=== PATIENT | male | born 1960 | race Caucasian/White ===

== ENCOUNTER → 2016-04-19 | Outpatient (CLI) | payer OTHER ==
--- NOTE | 2016-04-19 21:28 | PN ---
This patient is well-known to me. He is a 55-year-old male patient who was diagnosed having mild obstructive sleep apnea back in 2014 and he was found to have an AHI of 9.8. The patient also has coronary artery disease, hypertension, hyperlipidemia and has a BMI of 43. He was given a trial of CPAP therapy and he was treated with a CPAP pressure of 8 cm of water. Nevertheless, he was unable to be compliant enough to meet insurance guidelines to maintain his CPAP machine. At one point I was considered to do a Pap nap on this patient which he ultimately felt present his PAP nap and the CPAP machine was returned back to his home health care. Over the past 1-1/2 years the patient has not received any treatment and he has gained approximately 17 pounds. Current BMI is up to 45.9. 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 He has become a bit more sleepy than his baseline. Current [place] score is 5. He is snoring and he has had some occasional witnessed apneas. Otherwise, no other health issues ( ) over the past 1-1/2 years. Current medication includes: 1. Metoprolol 25 mg p.o. daily. 2. Lipitor 40 mg p.o. daily. 3. Enalapril 20 mg p.o. daily. 4. Hydrochlorothiazide 25 mg p.o. daily. 5. Vitamin D3. 6. Ecotrin 325 mg p.o. daily. 7. Dulera 200/5, 2 puffs twice a day. 8. Ventolin 2 puffs on a p.r.n. basis. 9. Prilosec 20 mg p.o. daily. 10. Nitroglycerin 0.4 on a p.r.n. basis. 11. Meloxicam 7.5 mg b.i.d. 12. Gabapentin 100 mg 3 times a day. BP is 139/88, pulse 83, respirations 18, temperature 97.9, saturation 96% on room air, weight is 261. Height is 62 inches and a half, [place] score of 5 and BMI is 45.9. GENERAL APPEARANCE: Calm, comfortable, obese. HEENT: Short neck, crowding posterior pharynx. LUNGS: Diminished; otherwise clear. Heart sounds are regular rate and rhythm. Normal S1, S2. No S3, no S4, no murmurs. ABDOMEN: Soft, nontender. No organomegaly. EXTREMITIES: No edema. No cyanosis, or clubbing. IMPRESSION: 1. Obstructive sleep apnea, mild, based on a previous sleep study that was done in 2014 with an apnea score of 9.5. The patient is coming in for evaluation and as the patient has become more symptomatic and he has gained around 17 pounds with current BMI of 45.9. He is also seeking DOT certification. 2. Obesity, with a body mass index of 45.9. 3. Various comorbidities including hypertension, hyperlipidemia, coronary artery disease. PLAN: 1. We will set up this patient for a home sleep study to evaluate this disease and its severity. 2. We will make further recommendations accordingly likely will need another CPAP titration. 3. We will continue to follow and make sure the patient is effectively treated before he obtains his medical clearance for DOT certification.
== END | disposition home or self-care (01) ==
LOC: SLEEP 15:42
PROVIDERS: ATTEND Internal Medicine Critical Care Medicine
DX: G47.33 Obstructive sleep apnea (adult) (pediatric) (principal); E66.9 Obesity, unspecified; Z68.42 Body mass index [BMI] 45.0-49.9, adult; I10 Essential (primary) hypertension; E78.5 Hyperlipidemia, unspecified; I25.10 Atherosclerotic heart disease of native coronary artery without angina pectoris; Z79.899 Other long term (current) drug therapy

== ENCOUNTER → 2017-08-01 | Outpatient (CLI) | payer BC ==
[2017-08-01 16:57] LABS: HCT 41.5 % (39.0-53.0); MCH 25.6 pg (25.0-35.0); MCHC 33.6 g/dL (31.0-37.0); MCV 76.2 fL (80.0-100.0); Platelet Count 183 k/uL (150-450); RBC 5.45 m/uL (4.30-5.90); RDW 14.3 % (11.5-15.5); WBC 6.4 k/uL (3.8-10.6)
[2017-08-01 17:12] LABS: Anion Gap 14 mmol/L; Blood Urea Nitrogen 15 mg/dL (9-20); Carbon Dioxide 27 mmol/L (22-30); Chloride 103 mmol/L (98-107); Potassium 3.8 mmol/L (3.5-5.1); Sodium 144 mmol/L (137-145)
== END | disposition home or self-care (01) ==
LOC: LABPAT 16:29
PROVIDERS: ATTEND Internal Medicine Interventional Cardiology
DX: Z01.812 Encounter for preprocedural laboratory examination (principal); I25.10 Atherosclerotic heart disease of native coronary artery without angina pectoris
CPT/HCPCS: 36415; 80051; 82565; 84520; 85027

== ENCOUNTER 2017-08-07 06:25 | Day surgery (SDC) | payer BC, OTHER ==
[2017-08-02 14:55] VITALS: BMI 44.8
[~2017-08-07 06:25] MED LIST: ALPRAZolam 0.25 MG TAB PO PRN; ALPRAZolam 0.5 MG TAB PO PRN; ASPIRIN 325 MG TAB PO STA; ATORVASTATIN 80 MG TAB PO STA; NITROGLYCERIN SL TABS 0.4 MG TAB SUBLINGUAL PRN; SODIUM CHLORIDE 0.9% 1,000 ML in EMPTY BAG 1 BAG IV ONE
[2017-08-07 07:02] VITALS: TEMP 98.5
[2017-08-07] MEDS ORDERED: LIDOCAINE 2% INJ 20 MG/ML (20 ML MDV) ONE (07:09)
[2017-08-07] MEDS ORDERED: VERAPAMIL 2.5 MG/ML 2 ML AMP ONE ×2 (07:09→07:10)
[2017-08-07] MEDS ORDERED: MIDAZOLAM 2 MG/2 ML VIAL ONE (07:29)
[2017-08-07] MEDS ORDERED: diphenhydrAMINE 50 MG/ML 1 ML VIAL ONE (07:29)
[2017-08-07] MEDS ORDERED: diphenhydrAMINE 50 MG/ML 1 ML VIAL IVP ONE (07:30)
[2017-08-07] MEDS: MIDAZOLAM 2 MG/2 ML VIAL IV ONE ×2 (07:30→07:38)
[2017-08-07] MEDS: LIDOCAINE 2% INJ 20 MG/ML SQ ONE ×2 (07:34→07:53)
[2017-08-07] MEDS: VERAPAMIL SYRINGE (5 MG/10 ML) INTRAARTER ONE ×2 (07:36→07:53)
[2017-08-07] MEDS ORDERED: HEPARIN SODIUM 1,000 UN/ML (10ML VL) ONE (07:48)
[2017-08-07] MEDS ORDERED: IOPAMIDOL-370 100ML BTL INJ ONE (07:50)
[2017-08-07] MEDS ORDERED: HEPARIN SODIUM 1,000 UN/ML (10ML VL) IV ONE (07:50)
[2017-08-07 07:55] LABS: Glucose,Whole Blood 141 mg/dL (75-99)
[2017-08-07] MEDS ORDERED: RX INFO: IV CONTRAST WAS GIVEN 1 EACH MISC MISCELLANE PRN (08:07)
[2017-08-07] MEDS ORDERED: SODIUM CHLORIDE 0.9% 1,000 ML IV SCH (08:15)
--- NOTE | 2017-08-07 08:43 | CC ---
CARDIAC CATHETERIZATION REPORT DATE OF SERVICE: 08/07/2017 PROCEDURE: Left heart catheterization, coronary angiography and left ventriculography. PERFORMED BY: Dr. Jamari Moncada. Moderate conscious sedation time was 25 minutes. CLINICAL INFORMATION: Mr. John Thomas is a 56-year-old obese gentleman with history of hypertension, type 2 diabetes, hyperlipidemia and known prior inferior IN in 2008, October, with stenting of a large RCA and a month later he had stenting of circumflex performed. Because of symptoms of exertional shortness of breath and an abnormal stress test, he was advised coronary angiography. Rationale, risks, benefits, options were explained. PROCEDURE NOTE: Under strict aseptic precautions and local anesthesia, a 6-Sinhala introducer was placed in the right radial artery. Using Ultimate 1 catheter, I performed selective coronary angiography of both coronary arteries and also checked LV pressures using the same catheter. An LV gram was performed using a pigtail catheter in 30-degree PRASAD projection. Patient tolerated procedure well without complications. The sheath was taken out and a TR band applied as per protocol. There was good saturation of the fingers of the right hand noted. The results were discussed with the patient and his . He was sent to the extended stay unit in a stable condition. CARDIAC CATHETERIZATION FINDINGS: The left ventricular end-diastolic pressure was about 10 to 12 mmHg without any gradient across the aortic valve. CORONARY ANGIOGRAPHY FINDINGS: RIGHT CORONARY ARTERY: Large dominant vessel which is widely patent at the site of previous stenting. It bifurcates distally into a larger PLV branch and a smaller PDA branch. There is no significant disease in the dominant right coronary artery and at the site of previous stenting the vessel is widely patent with brisk flow. LEFT MAIN CORONARY ARTERY: Short patent disease-free vessel that bifurcates into LAD and circumflex. LEFT ANTERIOR DESCENDING CORONARY ARTERY: Good caliber vessel extends along the anterior wall, gives off 2 or 3 diagonal branches. Small septal branches runs towards apex has no significant disease. LEFT POSTERIOR CIRCUMFLEX CORONARY ARTERY: Technically a nondominant vessel that was previously stented just before bifurcation. The stented segment is widely patent. It gives off an obtuse marginal branch and then continues as a distal posterolateral branch. There is no significant disease in the circumflex system and the stented segment is widely patent. LEFT VENTRICULOGRAM: This was performed in 30-degree PRASAD projection revealed a left ventricle, which is of normal size with mild inferobasal hypokinesia. Ejection fraction of 50% to 55% by visual inspection without mitral regurgitation. FINAL IMPRESSION: This patient has a widely patent dominant RCA as well as circumflex. There is no significant obstructive coronary artery disease in the LAD system. LV gram revealed an ejection fraction of nearly 55% with mild inferobasal hypokinesia. There is no mitral regurgitation. Right coronary is a very dominant vessel that was stented in the proximal area where he had an myocardial infarction in 2008 and now it appears to be widely patent. RECOMMENDATIONS: Findings were discussed with the patient and family. Continued medical therapy with risk factor modification was advised and patient will be discharged later on today if he remains stable. MMODL / IJN: [id number] /
[2017-08-07 08:48] VITALS: RESP 18
--- NOTE | 2017-08-07 08:48 | LTR ---
August 07, 2017 Re: John Thomas Dear Dr. Cline: Thank you for the opportunity to participate in the care of Mr. Thomas. I am pleased to report to you that he does not have any significant obstructive CAD that requires intervention. His previous stented RCA and circumflex are patent and the LAD has no significant disease and LV function is remarkably good with a very minimal inferobasal hypokinesia. Thank you for the referral and please call for questions. With kindest regards. Sincerely yours, MD ALANNA Cuellar / GUILHERME: [id number] /
[2017-08-07 15:24] VITALS: BP 121/68; PULSE 74
== END 2017-08-07 15:53 | disposition home or self-care (01) ==
LOC: CATHCVL 06:25
PROVIDERS: ATTEND Internal Medicine Interventional Cardiology
DX: I25.110 Atherosclerotic heart disease of native coronary artery with unstable angina pectoris (principal); I10 Essential (primary) hypertension; Z87.891 Personal history of nicotine dependence; E78.5 Hyperlipidemia, unspecified; E78.00 Pure hypercholesterolemia, unspecified; E11.9 Type 2 diabetes mellitus without complications; Z79.84 Long term (current) use of oral hypoglycemic drugs; Z95.5 Presence of coronary angioplasty implant and graft; E66.9 Obesity, unspecified; Z68.41 Body mass index [BMI] 40.0-44.9, adult; I25.2 Old myocardial infarction; Z79.82 Long term (current) use of aspirin; Z79.1 Long term (current) use of non-steroidal anti-inflammatories (NSAID); Z79.51 Long term (current) use of inhaled steroids; Z79.899 Other long term (current) drug therapy; Z88.0 Allergy status to penicillin
CPT/HCPCS: 93458; C1894; J2001; J2250; J1200; J1644; Q9967

== ENCOUNTER → 2021-03-23 | Outpatient (CLI) | payer BC ==
[2021-03-23 18:33] LABS: African American GFR (CKD) >90 (>60 ml/min/1.73 sqM); Blood Urea Nitrogen 16 mg/dL (9-20); Non-African American GFR(CKD) >90 (>60 ml/min/1.73 sqM)
--- NOTE | 2021-03-24 14:51 | CT ---
EXAMINATION TYPE: CT abdomen w con DATE OF EXAM: 03/23/2021 COMPARISON: CT 06/05/2014 HISTORY: epigastric pain CT DLP: 2210.2 mGycm Automated exposure control for dose reduction was used. TECHNIQUE: Helical acquisition of images was performed from the lung bases through the top of iliac crest to include entire abdomen. CONTRAST: Performed with Oral Contrast and with IV Contrast, patient injected with 100 mL of Isovue 300. FINDINGS: Small hiatal hernia is present, thickening of the distal esophagus is indeterminate. [place] ry artery calcifications are present. LUNG BASES: No significant abnormality is appreciated. LIVER/GB: No liver again shows low-attenuation consistent with hepatic steatosis, focal fatty sparing present adjacent to the gallbladder, gallbladder is unremarkable, the liver is enlarged. PANCREAS: No significant abnormality is seen. SPLEEN: No significant abnormality is seen. ADRENALS: No significant abnormality is seen. KIDNEYS: No significant abnormality is seen. BOWEL: No significant abnormality is seen. LYMPH NODES: No significant abnormality is appreciated. OSSEOUS STRUCTURES: Similar to prior, there is multilevel spondylosis, endplate discogenic density c hanges. FREE AIR: No Free Air visible ASCITES: None visible. RETROPERITONEAL ADENOPATHY: No Retroperitoneal Adenopathy visible. OTHER: IMPRESSION: HIATAL HERNIA, CORONARY ARTERY DISEASE, HEPATIC STEATOSIS AND HEPATOMEGALY
== END | disposition home or self-care (01) ==
LOC: RADCTMAIN 17:36
PROVIDERS: ATTEND Family Medicine
DX: Z12.39 Encounter for other screening for malignant neoplasm of breast (principal); K44.9 Diaphragmatic hernia without obstruction or gangrene; I25.10 Atherosclerotic heart disease of native coronary artery without angina pectoris; K76.0 Fatty (change of) liver, not elsewhere classified; R16.0 Hepatomegaly, not elsewhere classified
CPT/HCPCS: 82565; 84520; 74160; 36415; Q9967

== ENCOUNTER → 2021-08-18 | Outpatient (CLI) | payer BC ==
--- NOTE | 2021-08-18 15:39 | MR ---
EXAMINATION TYPE: MR brain wo/w con DATE OF EXAM: 08/18/2021 COMPARISON: 08/09/2013 CT brain HISTORY: Headaches, double vision. CONTRAST: Performed utilizing 11 mL intravenous Gadavist gadolinium contrast. TECHNIQUE: Multiplanar, multiecho imaging on a 3.0 Kristin magnet is performed through the brain. Stud y is performed within 24 hours of arrival to the hospital. The craniovertebral junction is normal. The pituitary is normal. Diffusion-weighted imaging is performed. No abnormal hyperintensity is present to suggest an acute i ntracranial infarct or acute ischemic change. There is a punctate area of hyperintensity in the trilobar white matter on the left. Series 501 image 20. A punctate periventricular white matter hyperintensity is present in the posterior right lateral ventricle. A more elongated smaller area of increased densities along the anterior left lateral vent ricle. Punctate hyperintensities within the posterior right centrum semiovale. Punctate hyperintensit ies in the subcortical white matter right frontal lobe. Couple small subcortical white matter changes are within the left centrum semiovale. Findings are nonspecific but could be related to microvascula r ischemic change. This is minimally greater than expected for patient of this age. Multiple sclerosi s, vasculitis, migraine headaches, Lyme disease could be considered within the differential. Ventricles and sulci are appropriate for the patient age. Following contrast administration no abnormal enhancement is evident. IMPRESSIONS: 1. Mild scattered punctate white matter changes are nonspecific. Consider microvascular ischemic meza ge or migraine headaches within the differential. Differential diagnosis discussed above.
== END | disposition home or self-care (01) ==
LOC: RADMRIMAIN 14:18
PROVIDERS: ATTEND Family Medicine
DX: H53.2 Diplopia (principal)
CPT/HCPCS: 70553; A9585

== ENCOUNTER → 2021-10-08 | Day surgery (SDC) | payer BC ==
[2021-10-07 08:23] VITALS: BMI 44.2
[~2021-10-08] MED LIST changes: -ALPRAZolam 0.25 MG TAB PO PRN; -ALPRAZolam 0.5 MG TAB PO PRN; -ASPIRIN 325 MG TAB PO STA; -ATORVASTATIN 80 MG TAB PO STA; +KETAMINE 10 MG/ML 20 ML VIAL ONE; +LACTATED RINGERS 1,000 ML IV SCH; +LIDOCAINE 1% (10MG/ML) FOR IV START INTRADERMA PRN; +LIDOCAINE 2% INJ 20 MG/ML (2 ML VIAL) ONE; +MIDAZOLAM 2 MG/2 ML VIAL ONE; -NITROGLYCERIN SL TABS 0.4 MG TAB SUBLINGUAL PRN; +PROPOFOL 10 MG/ML 20 ML VIAL IV ONE; -SODIUM CHLORIDE 0.9% 1,000 ML in EMPTY BAG 1 BAG IV ONE; +fentaNYL (PF) 50 MCG/ML 2 ML AMP ONE
[2021-10-08 07:17] VITALS: RESP 16; TEMP 97
[2021-10-08 07:28] LABS: Glucose,Whole Blood 152 mg/dL (70-110)
--- NOTE | 2021-10-08 08:36 | P.PCN ---
Date of Procedure: 10/08/21 Procedure(s) Performed: Brief history: Patient is a pleasant scheduled for an elective upper endoscopy as well as colonoscopy as a part of evaluation of GERD/left sided abdominal pain and screening for colorectal neoplasia. He has been on omeprazole 20 mg daily for several years. Lately has been having left upper quadrant abdominal pain that radiates into the back with occasional heartburn. No change in bowel habits. Procedure performed: Esophagogastroduodenoscopy with biopsy Colonoscopy with biopsy Preoperative diagnosis: GERD/left sided abdominal pain Screening for colon cancer Anesthesia: MAC Procedure: After informed consent was obtained from the patient was brought into the endoscopy unit and IV sedation was administered by anesthesia under continuous monitoring. Initially upper endoscopy was done. The Olympus GF 160 video endoscope was inserted inserted into the mouth and esophagus intubated without any difficulty and was gradually advanced into the stomach and duodenum and carefully examined. The bulb and second part of the duodenum appeared normal. The scope was then withdrawn into the stomach adequately insufflated with air and upon careful examination the antrum had scattered erosions and biopsies were done from this area. The body, cardia and fundus appeared normal. The scope was then withdrawn into the esophagus. The GE junction was located at 40 cm to the incisors. Small sliding type hiatal hernia noted. It appeared regular with no erythema erosions or ulcerations. There was a short segment of Rossi's esophagus extending 3 mm proximal to the GE junction which was biopsied. Rest of the esophagus appeared normal. Patient tolerated the procedure well. At this time the patient continued to remain sedation. Initial digital rectal examination was normal. Olympus CF 160 video colonoscope was then inserted into the rectum and gradually advanced to the cecum without any difficulty. Careful examination was performed as the scope was gradually being withdrawn. The prep was excellent. The cecum, appeared normal. Ascending colon there was a 3 mm polyp removed by cold biopsy. Rest of the ascending colon, transverse colon, descending colon, sigmoid colon and rectum appeared normal. Mild: There was another 3 mm polyp that was removed by cold biopsy. Retroflexion was performed in the rectum and no lesions were noted. Patient tolerated the procedure well. Impression: 1. Upper endoscopy revealed antral erosive gastritis, small hiatal hernia and short segment Rossi's esophagus 2. Colonoscopy revealed 3 mm ascending colon polyp and 3 mm; polyp status post cold biopsy Recommendations: Findings of this examination were discussed with the patient as well as his family. He was advised to follow with the biopsy results. If the biopsy confirms the presence of Rossi's esophagus he can have a repeat upper endoscopy in 3 years. If the biopsy of the colon polyps tubular adenoma he can have a repeat colonoscopy in 5 years. In the meantime he will continue with omeprazole 20 mg daily and follow antireflux measures.
[2021-10-08 09:11] VITALS: BP 112/74; PULSE 70
== END ==
LOC: ORWHC2ENDO 06:51
PROVIDERS: ATTEND Internal Medicine Gastroenterology
DX: Z12.11 Encounter for screening for malignant neoplasm of colon (principal); K63.5 Polyp of colon; K22.70 Barrett's esophagus without dysplasia; K44.9 Diaphragmatic hernia without obstruction or gangrene; K29.50 Unspecified chronic gastritis without bleeding; K21.00 Gastro-esophageal reflux disease with esophagitis, without bleeding; Z88.0 Allergy status to penicillin; E11.69 Type 2 diabetes mellitus with other specified complication; E78.5 Hyperlipidemia, unspecified; I10 Essential (primary) hypertension; I25.10 Atherosclerotic heart disease of native coronary artery without angina pectoris; J45.909 Unspecified asthma, uncomplicated; G47.33 Obstructive sleep apnea (adult) (pediatric); Z79.84 Long term (current) use of oral hypoglycemic drugs; Z79.899 Other long term (current) drug therapy; Z87.891 Personal history of nicotine dependence
CPT/HCPCS: 88305; 45380; 43239; J2250; J3010; J2704; J2001

== ENCOUNTER 2021-12-05 10:53 | Emergency (ER) | payer BC ==
[2021-12-05 11:13] VITALS: BP 112/61; PULSE 65; RESP 18; TEMP 98.1
--- NOTE | 2021-12-05 11:50 | ED ---
General Adult HPI - General Chief complaint: Skin/Abscess/Foreign Body Stated complaint: foreign body in finger Time Seen by Provider: 12/05/21 11:14 Source: patient, RN notes reviewed, old records reviewed Mode of arrival: ambulatory Limitations: no limitations - History of Present Illness Initial comments: 52-year-old male with possible foreign body right index finger the patient believes he got a wooden splinter several days prior. Patient is concerned about infection because he is a diabetic. He's had some erythema to the distal right index finger. No fever. No other complaints. Tetanus is up-to-date. - Related Data Home Medications Medication Instructions Recorded Confirmed Atorvastatin Calcium [Lipitor] 40 mg PO HS 06/05/14 10/07/21 Nitroglycerin Sl Tabs [Nitrostat] 0.4 mg SUBLINGUAL Q5M PRN 06/05/14 10/07/21 Omeprazole [PriLOSEC] 20 mg PO Q48H 06/05/14 10/07/21 Cholecalciferol [Vitamin D3] 3,000 unit PO DAILY 07/31/14 10/07/21 Metoprolol Tartrate [Lopressor] 75 mg PO BID 07/31/14 10/07/21 Vitamin B Complex 1 each PO DAILY 07/31/14 10/07/21 Aspirin EC [Ecotrin Low Dose] 81 mg PO DAILY 10/07/21 10/07/21 hydroCHLOROthiazide 25 mg PO DAILY 10/07/21 10/07/21 metFORMIN HCL [Glucophage] 500 mg PO BID 10/07/21 10/07/21 Previous Rx's Medication Instructions Recorded Cephalexin [Keflex] 500 mg PO QID 7 Days #28 cap 12/05/21 Allergies Allergy/AdvReac Type Severity Reaction Status Date / Time Penicillins Allergy Rash/Hives Verified 12/05/21 11:11 Review of Systems ROS Statement: Those systems with pertinent positive or pertinent negative responses have been documented in the HPI. ROS Other: All systems not noted in ROS Statement are negative. Past Medical History Past Medical History: Asthma, Coronary Artery Disease (CAD), Chest Pain / Angina, Diabetes Mellitus, GERD/Reflux, Hyperlipidemia, Hypertension, Myocardial Infarction ([place]), Sleep Apnea/CPAP/BIPAP Additional Past Medical History / Comment(s): c-pap machine., hx asthma-resolved with job change., herniated disc. Last Myocardial Infarction Date:: 2008 History of Any Multi-Drug Resistant Organisms: None Reported Past Surgical History: Heart Catheterization With Stent, Orthopedic Surgery Additional Past Surgical History / Comment(s): cardiac stent x2 (2009)., hand tendon surgery Past Anesthesia/Blood Transfusion Reactions: No Reported Reaction Date of Last Stent Placement:: 11/2008 Past Psychological History: No Psychological Hx Reported Smoking Status: Former smoker Past Alcohol Use History: Occasional Past Drug Use History: None Reported - Past Family History Father Additional Family Medical History / Comment(s): CABG General Exam Limitations: no limitations General appearance: alert, in no apparent distress Head exam: Present: atraumatic, normocephalic Eye exam: Present: normal appearance, PERRL Neck exam: Present: normal inspection Respiratory exam: Absent: respiratory distress Cardiovascular Exam: Present: regular rate, normal rhythm GI/Abdominal exam: Present: soft. Absent: distended Extremities exam: Present: other (Erythema to the right distal index finger, there is a puncture wound with no visible foreign body on exam) Course Vital Signs 12/05/21 11:12 Temperature 98.1 F Pulse Rate 65 Respiratory 18 Rate Blood Pressure 112/61 O2 Sat by Pulse 98 Oximetry Medical Decision Making - Medical Decision Making 52-year-old male with possible foreign body right index finger the patient believes he got a wooden splinter several days prior. Patient is concerned about infection because he is a diabetic. He's had some erythema to the distal right index finger. No fever. No other complaints. Tetanus is up-to-date. X- ray performed which is negative for foreign body. I do not see a foreign body visually and the patient has very thick calluses on the digits. He should use a pumice stone and take antibiotics as prescribed, return if foreign-body is visualized or worsening symptoms. Disposition Clinical Impression: Infected sliver of skin of finger Disposition: HOME SELF-CARE Condition: Good Instructions (If sedation given, give patient instructions): Puncture Wound (DC), Soft Tissue Foreign Body (ED) Prescriptions: Cephalexin [Keflex] 500 mg PO QID 7 Days #28 cap Is patient prescribed a controlled substance at d/c from ED?: No Referrals: Pako Cline DO [Primary Care Provider] - 1-2 days Time of Disposition: 11:47
--- NOTE | 2021-12-05 12:00 | XR ---
EXAMINATION TYPE: XR finger LT DATE OF EXAM: 12/05/2021 Comparison: 09/30/2011 TECHNIQUE: 3 views coned down right index finger Clinical History: 60-year-old male with pain, assess for FB Findings: Minimal degenerative spurring at the DIP joint of the second digit. No retained radiopaque foreign satnam dy seen. No acute fracture, subluxation, or dislocation. Impression: No retained radiopaque foreign body or acute osseous abnormality seen.
== END 2021-12-05 12:11 | disposition home or self-care (01) ==
LOC: EC 10:53
DX: S60.451A Superficial foreign body of left index finger, initial encounter (principal); J45.909 Unspecified asthma, uncomplicated; I25.10 Atherosclerotic heart disease of native coronary artery without angina pectoris; I10 Essential (primary) hypertension; E11.9 Type 2 diabetes mellitus without complications; K21.9 Gastro-esophageal reflux disease without esophagitis; Z87.891 Personal history of nicotine dependence; Z79.899 Other long term (current) drug therapy; Z79.82 Long term (current) use of aspirin; Z79.84 Long term (current) use of oral hypoglycemic drugs; Z88.0 Allergy status to penicillin
CPT/HCPCS: 99283

== ENCOUNTER → 2021-12-15 | Outpatient (CLI) | payer BC ==
[2021-12-15 14:40] LABS: African American GFR (CKD) >90 (>60 ml/min/1.73 sqM); Blood Urea Nitrogen 15 mg/dL (9-20); Non-African American GFR(CKD) >90 (>60 ml/min/1.73 sqM)
--- NOTE | 2021-12-15 15:41 | CT ---
EXAMINATION TYPE: CT angio neck DATE OF EXAM: 12/15/2021 COMPARISON: None HISTORY: Abnormal CTA of neck CONTRAST: None TECHNIQUE: Multiplanar multiecho imaging on a 3.0 Kristin magnet is performed through the [facility] of [facility]. 3-D [id number] imaging is performed. Source images are reviewed on the computer in the axi al plane. Reconstructed images rotating on the computer are reviewed. FINDINGS: There is a 3 vessel arch. Vertebral arteries are codominant. Atheromatous plaque is at the bilateral carotid bifurcations. No significant flow-limiting stenosis is evident. [place]: The internal carotid arteries bifurcate normally into A1 and M1 segments. The A2 s egments are normal. Middle cerebral artery branches are normal. Anterior communicating artery is patent. The right posterior communicating artery is patent. The left posterior communicating artery is patent. Vertebrobasilar arteries within the [id number] are normal. Posterior cerebral vasculature is norm al. No suspicious aneurysm or aneurysmal dilatation is evident. No obstructions are identified. No significant flow-limiting stenosis is evident. IMPRESSIONS: 1. NORMAL MRA [place]. 2. No significant flow-limiting limiting stenosis bilateral carotid bifurcations. Mild atheromatous p laquing is present around the left.
== END | disposition home or self-care (01) ==
LOC: RADCTMAIN 14:01
PROVIDERS: ATTEND Psychiatry & Neurology Neurology
DX: R93.89 Abnormal findings on diagnostic imaging of other specified body structures (principal)
CPT/HCPCS: 82565; 84520; 70498; 36415; Q9967

== ENCOUNTER → 2022-02-28 | Outpatient (CLI) | payer BC ==
--- NOTE | 2022-02-28 15:50 | CT ---
EXAMINATION TYPE: CT sinus wo con DATE OF EXAM: 02/28/2022 COMPARISON: None HISTORY: Chronic sinusitis CT DLP: 667.[address] of the paranasal sinuses was performed in the axial and coronal planes. Bone and soft tissue settings are submitted. The paranasal sinuses demonstrate normal aeration and development. The paranasal sinuses are free of mucosal thickening or air fluid level. The osteal meatal units are patent bilaterally. The nasal septum is midline. No bony destructive changes are seen within the field of view. IMPRESSION: Normal unenhanced CT of the paranasal sinuses.
== END | disposition home or self-care (01) ==
LOC: RADCTMAIN 15:25
PROVIDERS: ATTEND Otolaryngology
DX: J32.9 Chronic sinusitis, unspecified (principal)
CPT/HCPCS: 70486

== ENCOUNTER → 2023-08-30 | Outpatient (CLI) | payer BC ==
[2023-08-30 18:18] LABS: Basophils # (A) 0.05 X 10*3/uL (0.00-0.10); Basophils % (A) 0.7 %; Eosinophils # (A) 0.12 X 10*3/uL (0.04-0.35); Eosinophils % (A) 1.6 %; HGB 14.8 g/dL (13.0-17.0); Lymphocytes # (A) 1.54 X 10*3/uL (0.90-5.00); Lymphocytes % (A) 20.2 %; MCH 25.5 pg (27.0-32.0); MCHC 32.2 g/dL (32.0-37.0); MCV 79.2 FL (80.0-97.0); Mean Platelet Volume 10.6 FL (9.5-12.2); Monocytes # (A) 0.74 X 10*3/uL (0.20-1.00); Monocytes % (A) 9.7 %; NRBC Per 100 WBC 0 X 10*3/uL (0.00-0.01); Neutrophils # (A) 5.13 X 10*3/uL (1.80-7.70); Neutrophils % (A) 67.4 %; Platelet Count 251 X 10*3/uL (140-440); RBC 5.81 X 10*6/uL (4.40-5.60); RDW 13.8 % (11.5-14.5); WBC 7.61 X 10*3/uL (4.50-10.00)
[2023-08-30 18:26] LABS: ALT 28 U/L (10-49); AST 24 U/L (14-35); Albumin 4.4 g/dL (3.8-4.9); Albumin/Globulin Ratio 2.32 Ratio (1.60-3.17); Alkaline Phosphatase 91 U/L (41-126); Carbon Dioxide 28.3 mmol/L (21.6-31.8); Chloride 96 mmol/L (96-109); Chol/HDL Ratio 3.72 Ratio; Globulin 1.9 g/dL (1.6-3.3); Glucose 115 mg/dL (70-110); Potassium 4.1 mmol/L (3.5-5.5); Sodium 137 mmol/L (135-145); Total Bilirubin 0.5 mg/dL (0.3-1.2); Total Protein 6.3 g/dL (6.2-8.2); VLDL Calculation 17.16 mg/dL (5.00-40.00)
[2023-08-30 21:00] LABS: Microalbumin Creatinine Ratio <26 mg/g Cr (0-30)
== END | disposition home or self-care (01) ==
LOC: LABWHC1 10:07
PROVIDERS: ATTEND Nurse Practitioner Family
DX: Z12.5 Encounter for screening for malignant neoplasm of prostate (principal); E11.9 Type 2 diabetes mellitus without complications
CPT/HCPCS: 36415; 80053; 80061; 82043; 82570; 84153; 85025

== ENCOUNTER → 2024-02-23 | Outpatient (CLI) | payer BC ==
[2024-02-23 09:36] LABS: African American GFR (CKD) >90 (>60 ml/min/1.73 sqM); Blood Urea Nitrogen 19 mg/dL (9-20); Non-African American GFR(CKD) >90 (>60 ml/min/1.73 sqM)
--- NOTE | 2024-02-23 10:12 | CT ---
CT thorax with contrast. HISTORY: Respiratory crackles and pain. COMPARISON: 03/25/2011. TECHNIQUE: Multiple axial images were obtained through the thorax following the uneventful administra tion of nonionic IV contrast material. FINDINGS: The lungs are clear of consolidative/airspace density or abnormal interstitial density. There are no suspicious lung masses or nodules. There is no pleural effusion, pleural thickening or pneumothorax. The great vessels the chest are normal with no mediastinal, hilar or axillary adenopathy. There is no pulmonary embolus. There is again to the upper abdomen reveals no gross abnormality. No focal osseous lesions are seen. IMPRESSION: 1. No acute cardiopulmonary disease. 2. No CT evidence of interstitial lung disease. 3. No significant abnormality seen. [facility], , 02/23/2024 10:10 AM
== END | disposition home or self-care (01) ==
LOC: RADCTMAIN 08:52
PROVIDERS: ATTEND Family Medicine
DX: R09.89 Other specified symptoms and signs involving the circulatory and respiratory systems (principal); R07.9 Chest pain, unspecified
CPT/HCPCS: 82565; 84520; 71260; Q9967

== ENCOUNTER → 2024-08-01 | Outpatient (CLI) | payer BC ==
--- NOTE | 2024-08-01 15:13 | XR ---
EXAMINATION TYPE: XR chest 2V DATE OF EXAM: 08/01/2024 2:55 PM COMPARISON: None CLINICAL INDICATION: Male, 63 years old with history of R06.02 SHORTNESS OF BREATH, , TECHNIQUE: Frontal and lateral views FINDINGS: Heart upper limits of normal in size. Aorta and pulmonary vasculature within normal limits. Mild inte rstitial prominence may be due to crowded vascular markings from diminished lung volumes. No consolid ation or pleural effusion. IMPRESSION: Hypoventilatory changes. Interstitial prominence could reflect vascular crowding from the low lung vo lumes or mild pulmonary vascular congestion. Clinically correlate. [facility], Workstation: [facility], 08/01/2024 3:11 PM
== END | disposition home or self-care (01) ==
LOC: RADXRMAIN 14:35
PROVIDERS: ATTEND Nurse Practitioner Family
DX: R06.02 Shortness of breath (principal)
CPT/HCPCS: 71046